=== PATIENT | female | born 1985 | race Caucasian/White ===

== ENCOUNTER 2017-05-20 11:54 | Emergency (ER) | payer SELFPAY ==
[2017-05-20 12:01] VITALS: BP 121/76
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
== END 2017-05-20 12:52 | disposition home or self-care (01) ==
LOC: ER 11:54
DX: R11.0 Nausea (principal); R51 Headache; G40.909 Epilepsy, unspecified, not intractable, without status epilepticus
CPT/HCPCS: 99281